=== PATIENT | female | born 1970 | race Two or more races ===

== ENCOUNTER 2016-08-05 07:17 | Emergency (ER) | payer MEDICAID ==
[~2016-08-05] VITALS: Ht 157.5 cm; Wt 68.0 kg
[2016-08-05 07:30] VITALS: BP 128/66
[2016-08-05] MEDS ORDERED: KETOROLAC TROMETH 60MG/2ML VIAL IM ONE (09:15)
== END 2016-08-05 10:00 | disposition home or self-care (01) ==
LOC: ER 07:17
DX: F41.1 Generalized anxiety disorder (principal); E11.9 Type 2 diabetes mellitus without complications; Z98.51 Tubal ligation status
CPT/HCPCS: 96372; 99283; J1885